=== PATIENT | male | born 1960 | race Caucasian/White ===

== ENCOUNTER 2019-09-02 20:44 | Emergency (ER) | payer OTHER ==
[~2019-09-02] VITALS: Ht 182.9 cm; Wt 115.7 kg
[2019-09-02 20:52] VITALS: BP 132/81; Ht 182.9 cm; Wt 115.7 kg
== END 2019-09-02 21:09 | disposition home or self-care (01) ==
LOC: ED 20:44
DX: M54.40 Lumbago with sciatica, unspecified side (principal)